=== PATIENT | female | born 1940 | race Two or more races ===

== ENCOUNTER → 2020-02-22 | Outpatient (CLI) | payer MEDICARE | END | disposition home or self-care (01) | LOC: RAD 14:26 | DX: Z01.810 Encounter for preprocedural cardiovascular examination (principal); R07.9 Chest pain, unspecified | CPT/HCPCS: 71046 ==

== ENCOUNTER 2021-02-20 09:46 | Outpatient (CLI) | payer MEDICARE ==
[2021-02-20 10:40] LABS: ANION GAP 7 mmol/L (5-15); CALCIUM 9.6 mg/dL (8.5-10.1); CHLORIDE 107 mmol/L (98-107); CREATININE 1.11 mg/dL (0.55-1.02)
== END 2021-02-20 23:59 | disposition home or self-care (01) ==
LOC: RAD 09:46 → STAR 23:59
PROVIDERS: ATTEND Anesthesiology
DX: Z01.818 Encounter for other preprocedural examination (principal); Z01.812 Encounter for preprocedural laboratory examination; Z01.89 Encounter for other specified special examinations; R79.1 Abnormal coagulation profile; I51.7 Cardiomegaly
CPT/HCPCS: 36415; 80048; 93005